=== PATIENT | female | born 1985 | race Caucasian/White ===

== ENCOUNTER 2019-09-17 04:08 | Inpatient (IN) ==
[2019-09-17 03:29] LABS: Basophils # 0.1 K/mcL (0.0-0.2); Basophils % 0.7 %; Eosinophils # 0.1 K/mcL (0.0-0.6); Eosinophils % 0.9 %; Hematocrit 38.3 % (35.3-44.9); Hemoglobin 12.4 g/dL (11.5-15.4); Lymphocytes # 2.2 K/mcL (0.6-4.6); Lymphocytes % 17.1 %; Mean Corpuscular HGB Conc 32.4 g/dL (31.6-35.5); Mean Corpuscular Volume 89.5 fL (83.0-100.0); Mean Platelet Volume 10.1 fL (9.4-12.4); Monocytes # 1.1 K/mcL (0.0-1.3); Monocytes % 8.6 %; Neutrophils # 9.2 K/mcL (1.6-8.9); Platelet Count 210 K/mcL (140-400); Red Blood Count 4.28 M/mcL (3.82-4.97); Segmented Neutrophils % 70.7 %
[2019-09-17 03:38] LABS: Amphetamine Screen,Urine Negative ng/mL (Cutoff=1000); Barbiturate Screen,Urine Negative ng/mL (Cutoff=200); Benzodiazepines Screen,Urine Negative ng/mL (Cutoff=200); Cannabinoid Screen,Urine Negative ng/mL (Cutoff = 50); Cocaine Screen,Urine Negative ng/mL (Cutoff= 300); Opiate Screen,Urine Negative ng/mL (Cutoff=300); Phencyclidine Screen,Urine Negative ng/mL (Cutoff=25)
[~2019-09-17 04:08] MED LIST: *HR* FentaNYL (PF) 100 MCG/2 ML VIAL IVP PRN; Azithromycin 500 MG in 0.9 % Sodium Chloride 250 ML IVPB ONE; Famotidine 20 MG/2 ML VIAL IVP PRN; Lidocaine 1% 20 ML MDV INFILT PRN; Metoclopramide 10 MG/2 ML VIAL IVP PRN; Naloxone 0.4 MG/ML INJ IVP PRN; Ondansetron 4 MG/2 ML VIAL IVP PRN; Penicillin G Potassium 5,000,000 UNIT in 0.9 % Sodium Chloride Mini Bag 100 ML IVPB ONE; Ringers Solution, Lactated 1,000 ML IVC SCH
[2019-09-17] MEDS ORDERED: EPHEDrine 50 MG/ML VIAL IVP PRN (07:00)
[2019-09-17] MEDS ORDERED: Epidural Premix (fent/bupiv) 110 ML EP SCH (07:00)
[2019-09-17] MEDS ORDERED: Oxytocin 20 units/ LR 1000 mL 20 UNIT/1,000 ML BAG IVC ONE ×2 (07:01→11:55)
[2019-09-17] MEDS ORDERED: Ropivacaine/PF 0.2% 20 ML VIAL ONE (07:10)
[2019-09-17] MEDS ORDERED: *HR* FentaNYL (PF) 100 MCG/2 ML VIAL ONE (07:10)
[2019-09-17] MEDS ORDERED: Penicillin G Potassium 2,500,000 UNIT/105 ML UNIT IVPB SCH (08:00)
[2019-09-17] MEDS ORDERED: Oxytocin 20 units/ LR 1000 mL 20 UNIT/1,000 ML BAG IVC SCH ×2 (08:30→11:55)
[2019-09-17] MEDS ORDERED: Methylergonovine 0.2 MG/ML AMPUL IM ONE (10:17)
[2019-09-17] MEDS ORDERED: Sennosides 8.6 MG TABLET PO PRN (11:55)
[2019-09-17] MEDS ORDERED: Measles/Mumps/Rubella Vacc 0.5 ML VIAL SQ PRN (11:55)
[2019-09-17] MEDS ORDERED: Acetaminophen 325 MG TABLET PO PRN (11:55)
[2019-09-17] MEDS ORDERED: Rho Immune Globulin 1,500 UNIT SYRINGE IM PRN (11:55)
[2019-09-17] MEDS ORDERED: Lanolin 7 G OINT...G. TP PRN (11:55)
[2019-09-17] MEDS ORDERED: Benzocaine/Menthol 56 GM AEROSOL SPRAY TP PRN (11:55)
[2019-09-17] MEDS: Ibuprofen 600 MG TABLET PO PRN (21:01)
[2019-09-18] MEDS: Ibuprofen 600 MG TABLET PO PRN (04:29)
[2019-09-18 07:29] LABS: Basophils # 0.1 K/mcL (0.0-0.2); Basophils % 0.8 %; Eosinophils # 0.1 K/mcL (0.0-0.6); Eosinophils % 1.4 %; Hematocrit 31.8 % (35.3-44.9); Hemoglobin 10.5 g/dL (11.5-15.4); Immature Granulocytes % 1.4 % (0-4); Lymphocytes # 2.4 K/mcL (0.6-4.6); Lymphocytes % 25.1 %; Mean Corpuscular Hemoglobin 29.9 pg (28.0-33.3); Mean Corpuscular Volume 90.6 fL (83.0-100.0); Mean Platelet Volume 9.7 fL (9.4-12.4); Monocytes % 10.9 %; Neutrophils # 5.8 K/mcL (1.6-8.9); Platelet Count 189 K/mcL (140-400); Red Blood Count 3.51 M/mcL (3.82-4.97); Red Cell Distribution Width 13.2 % (11.5-14.5); Segmented Neutrophils % 60.4 %; White Blood Count 9.6 K/mcL (4.3-11.1)
[2019-09-18 08:11] VITALS: BP 110/65
[2019-09-18] MEDS ORDERED: Prenatal Vit/FA 1 EACH TABLET PO SCH (09:00)
== END 2019-09-18 14:40 | disposition home or self-care (01) | DRG 560 ==
LOC: 1NENULAB → 1NENUOBS 11:33
PROVIDERS: ADMIT Obstetrics & Gynecology; ATTEND Obstetrics & Gynecology